=== PATIENT | female | born 1960 | race Caucasian/White ===

== ENCOUNTER → 2019-12-10 18:09 | Outpatient (BNVA) | payer BC, SELFPAY | PROVIDERS: Family Provider Nurse Practitioner; PCP Nurse Practitioner; Visit Provider Nurse Practitioner | DX: R39.9 Unspecified symptoms and signs involving the genitourinary system (principal) | CPT/HCPCS: 81000 ==

== ENCOUNTER 2019-12-16 15:28 | Outpatient (CLI) | payer BC, SELFPAY ==
--- NOTE | 2019-12-16 15:30 | MM_ITS ---
WS: [id number] SCREENING DIGITAL MAMMOGRAM WITH CAD HISTORY: screening mammogram COMPARISON: 05/05/2015, 08/26/2018, 04/25/2017 Bilateral CC and MLO views submitted. Computer aided detection analyzed. Breast composition: The breasts are heterogeneously dense, which may obscure small masses. There are multiple new bilateral high density masses within each breast. Some these are lobulated and some cyril ins are obscured. Largest in the RIGHT breast at 12:00 measures 11 mm. Largest in the LEFT breast at 2:00 measures 15 mm. There is an additional partially obscured mass below the nipple line on the RIGH T MLO. Additional slightly lobulated mass on the LEFT CC and the posterior central breast. MM/[place] [id number] IMPRESSION: BI-RADS: 0-Incomplete: Need additional imaging evaluation FOLLOW UP: Need Additional Imaging Multiple new masses in each breast need further evaluation. Due to the [facility] these are probably cysts. Additional compression views of each breast along with ultrasound will need to be performed to exclude solid masses.
== END 2019-12-16 15:29 | disposition home or self-care (01) ==
LOC: RADSHAW 15:33
PROVIDERS: PCP Family Medicine; Visit Provider Family Medicine
DX: Z12.31 Encounter for screening mammogram for malignant neoplasm of breast (principal); N63.10 Unspecified lump in the right breast, unspecified quadrant; N63.20 Unspecified lump in the left breast, unspecified quadrant
CPT/HCPCS: 77067

== ENCOUNTER → 2019-12-28 14:37 | Outpatient (BNVA) | payer BC, SELFPAY | PROVIDERS: PCP Family Medicine; Visit Provider Nurse Practitioner Family | DX: Z11.59 Encounter for screening for other viral diseases (principal) | CPT/HCPCS: 87635 ==

== ENCOUNTER → 2020-01-10 15:53 | Outpatient (BNVA) | payer BC, SELFPAY | PROVIDERS: PCP Family Medicine; Visit Provider Nurse Practitioner Family | DX: R39.9 Unspecified symptoms and signs involving the genitourinary system (principal) | CPT/HCPCS: 81000 ==

== ENCOUNTER 2020-01-13 11:46 | Outpatient (CLI) | payer BC, SELFPAY ==
--- NOTE | 2020-01-13 12:00 | MM_ITS ---
WS: [id number] DIAGNOSTIC BILATERAL DIGITAL MAMMOGRAM WITH CAD Bilateral breast ultrasound, complete. HISTORY: abnormal mammogram COMPARISON: 12/16/2019, 08/26/2018, 04/25/2017 TECHNIQUE: Bilateral craniocaudad, mediolateral oblique, and mediolateral views are submitted. Spot c ompression CC and MLO views bilaterally. Computer aided detection utilized. Breast composition: The breasts are heterogeneously dense, which may obscure small masses. There are numerous bilateral round mass is of increased density. Margins are partially obscured due to overlapp ing nature. These are predominantly in the upper outer quadrants but also extends across midline and into the inferior breast. Bilateral breast ultrasound, complete. There are numerous cystic masses bilaterally within each breast. There are no solid masses or areas o f architectural distortion or shadowing. Largest cyst in the LEFT breast is at 3:00, 2 cm from the ni pple measuring 1.4 x 1.0 x 1.4 cm. The largest cyst in the RIGHT breast is at 12:00 1 cm from the nip ple measuring 1.2 x 1.1 x 1.5 cm. MM/[place] [id number] IMPRESSION: BI-RADS: 2-Benign FOLLOW UP: 1 Year Follow-up Multiple bilateral breast masses correspond to cysts of various sizes.
--- NOTE | 2020-01-13 12:45 | US_ITS ---
WS: [id number] DIAGNOSTIC BILATERAL DIGITAL MAMMOGRAM WITH CAD Bilateral breast ultrasound, complete. HISTORY: abnormal mammogram COMPARISON: 12/16/2019, 08/26/2018, 04/25/2017 TECHNIQUE: Bilateral craniocaudad, mediolateral oblique, and mediolateral views are submitted. Spot c ompression CC and MLO views bilaterally. Computer aided detection utilized. Breast composition: The breasts are heterogeneously dense, which may obscure small masses. There are numerous bilateral round mass is of increased density. Margins are partially obscured due to overlapp ing nature. These are predominantly in the upper outer quadrants but also extends across midline and into the inferior breast. Bilateral breast ultrasound, complete. There are numerous cystic masses bilaterally within each breast. There are no solid masses or areas o f architectural distortion or shadowing. Largest cyst in the LEFT breast is at 3:00, 2 cm from the ni pple measuring 1.4 x 1.0 x 1.4 cm. The largest cyst in the RIGHT breast is at 12:00 1 cm from the nip ple measuring 1.2 x 1.1 x 1.5 cm. US/US breast BI limited* [id number] IMPRESSION: BI-RADS: 2-Benign FOLLOW UP: 1 Year Follow-up Multiple bilateral breast masses correspond to cysts of various sizes.
== END 2020-01-13 11:47 | disposition home or self-care (01) ==
LOC: RADSHAW 11:50
PROVIDERS: PCP Family Medicine; Visit Provider Family Medicine
DX: R92.8 Other abnormal and inconclusive findings on diagnostic imaging of breast (principal); N63.10 Unspecified lump in the right breast, unspecified quadrant; N63.20 Unspecified lump in the left breast, unspecified quadrant
CPT/HCPCS: 76642; 77066

== ENCOUNTER → 2020-06-10 06:59 | Outpatient (BNVA) | payer BC, SELFPAY | PROVIDERS: PCP Family Medicine; Visit Provider Family Medicine | DX: F41.9 Anxiety disorder, unspecified (principal); N39.0 Urinary tract infection, site not specified; Z13.6 Encounter for screening for cardiovascular disorders; Z79.899 Other long term (current) drug therapy | CPT/HCPCS: 80053; 80061; 85025 ==

== ENCOUNTER → 2020-09-19 12:19 | Outpatient (BNVA) | payer BC, SELFPAY | PROVIDERS: PCP Family Medicine; Visit Provider Nurse Practitioner | DX: Z20.822 Contact with and (suspected) exposure to COVID-19 (principal) | CPT/HCPCS: 87635 ==

== ENCOUNTER 2020-12-05 13:09 | Outpatient (CLI) | payer BC, SELFPAY ==
--- NOTE | 2020-12-05 13:14 | XR_ITS ---
WS: [id number] ABDOMEN 1 VIEW(S) HISTORY: suprapubic pain COMPARISON: None available. Moderate fecal retention within the colon. No obstructive pattern. No suspicious calcifications or masses. No bone abnormality. XR/XR KUB [id number] IMPRESSION: Mild constipation.
== END 2020-12-05 13:10 | disposition home or self-care (01) ==
PROVIDERS: PCP Family Medicine; Visit Provider Family Medicine
DX: R10.2 Pelvic and perineal pain (principal); K59.00 Constipation, unspecified
CPT/HCPCS: 74018; 81000

== ENCOUNTER → 2021-02-07 14:12 | Outpatient (BNVA) | payer BC, SELFPAY | PROVIDERS: PCP Family Medicine; Visit Provider Nurse Practitioner Women's Health | DX: R10.2 Pelvic and perineal pain (principal) | CPT/HCPCS: 87086 ==

== ENCOUNTER → 2021-02-16 13:30 | Outpatient (BNVA) | payer BC, SELFPAY | PROVIDERS: PCP Family Medicine; Visit Provider Nurse Practitioner Women's Health | DX: R10.31 Right lower quadrant pain (principal) | CPT/HCPCS: 76830 ==

== ENCOUNTER → 2021-05-12 08:24 | Outpatient (BNVA) | payer BC, SELFPAY | PROVIDERS: PCP Family Medicine; Visit Provider Obstetrics & Gynecology | DX: Z20.822 Contact with and (suspected) exposure to COVID-19 (principal) | CPT/HCPCS: 87635 ==

== ENCOUNTER 2021-05-15 11:51 | Outpatient (CLI) | payer BC, SELFPAY ==
--- NOTE | 2021-05-15 12:00 | MM_ITS ---
WS: [id number] BILATERAL SCREENING DIGITAL MAMMOGRAM WITH CAD HISTORY: Z12.39 - Encounter for other screening for malignant radha... COMPARISON: 12/16/2019, 08/26/2018, 04/25/2017 and 05/05/2015 Bilateral CC and MLO views submitted. Computer aided detection analyzed. Breast composition: The breasts are heterogeneously dense, which may obscure small masses. No suspici ous masses, microcalcifications or architectural distortion. Patient has bilateral asymmetries and lo bulated masses. These have been present on prior studies and noted to be cystic masses on ultrasound. In the 11:00 region of the LEFT breast is a lobulated mass measuring 10 x 9 mm which is noted to be a cyst on prior imaging studies. MM/[place] [id number] IMPRESSION: BI-RADS: 2-Benign FOLLOW UP: 1 Year Follow-up
== END 2021-05-15 11:52 | disposition home or self-care (01) ==
PROVIDERS: PCP Family Medicine; Visit Provider Nurse Practitioner Women's Health
DX: Z12.31 Encounter for screening mammogram for malignant neoplasm of breast (principal); Z01.818 Encounter for other preprocedural examination
CPT/HCPCS: 77067; 80053; 85025

== ENCOUNTER 2021-05-18 08:30 | Day surgery (SDC) | payer BC, SELFPAY ==
[2021-05-17 09:57] VITALS: BMI 25.4
[2021-05-18] VITALS (9 sets, daily range): BP systolic 109–134; BP diastolic 57–88; PULSE 60–81; RESP 10–21; TEMP 36.1–37.4; O2SAT 95–100
[2021-05-18] MEDS: sodium chloride 0.9% 1,000 ML 30 ML IV (09:27)
--- NOTE | 2021-05-18 09:31 | P.HPUD_ITS ---
Surgery/Procedure H&P Update DATE OF PROCEDURE: May 18, 2021 DATE H&P PERFORMED: 05/01/21 H&P UPDATE INFORMATION: I have reviewed H&P completed within last 30 days, I have examined patient prior to procedure, No changes to prior documentation and H&P is in [facility] EMR on date indicated PREOP DIAGNOSIS: Thickened endometrium, stenotic cervix PLANNED PROCEDURE: Operation Date: 05/18/21 09:55 Proposed Procedures p Hysteroscopy/10575/[id number]/13447/N88.2(Not Applicable) - Lea Olvera MD s Dilation And Curettage (D&C)(Not Applicable) - Lea Olvera MD
--- NOTE | 2021-05-18 09:32 | ANES.PREANE2 ---
Pre-Anesthetic Assessment Height/Weight: Height 1.68 m Weight 71.668 kg Temp Pulse Resp BP Pulse Ox 99.3 F 81 18 134/77 99 05/18/21 08:47 05/18/21 08:47 05/18/21 08:47 05/18/21 08:47 05/18/21 08:47 Preop Diagnosis: Thickened endometrium, stenotic cervix Operation Date: 05/18/21 09:55 Proposed Procedures p Hysteroscopy/[id number]/[id number]/41255/N88.2(Not Applicable) - Lea Olvera MD s Dilation And Curettage (D&C)(Not Applicable) - Lea Olvera MD Familial anesthetic complications: none Was Beta Deepika taken within 24 hours: N/A Was Clonidine taken within 24 hours: N/A Last intake: Intake Last Liquid Date 05/17/21 Last Liquid Time 22:00 Last Solid Date 05/17/21 Last Solid Time 22:00 Social No alcohol and No tobacco Exam alert, oriented x 3, clear to auscultation bilaterally and regular rate & rhythm Airway Mallampati: Class II Dentition: chipped Pulmonary Asthma (ocassional use of inhaler) Anesthetic Plan ASA status: 2 Anesthesia: General Risk of > 500 ml blood loss (7ml/kg in children): No Medications/Allergies Home Medications Medication Instructions Recorded Confirmed Last Taken Type fexofenadine 180 mg tablet 180 mg PO QDAY 04/17/19 05/17/21 Unknown History ([facility] [facility]) estradiol 0.5 mg tablet 0.5 mg PO QDAY #30 tab 02/07/21 05/17/21 05/16/21 Rx medroxyprogesterone 2.5 mg tablet 2.5 mg PO DAILY #30 tab 02/07/21 05/17/21 05/16/21 Rx (Provera) cetirizine 10 mg capsule (Zyrtec) 10 mg PO DAILY 05/01/21 05/17/21 05/17/21 History bupropion HCl 300 mg 24 hr tablet, 300 mg PO QAM #90 tab 05/15/21 05/17/21 05/17/21 20:00 Rx extended release Allergies Allergy/AdvReac Type Severity Reaction Status Date / Time No Known Allergies Allergy Verified 05/15/21 14:50 Current Medications Generic Name Dose Route Start Last Admin Trade Name Freq PRN Reason Stop Dose Admin Sodium Chloride 1,000 mls @ 30 mls/hr 05/18/21 08:45 05/18/21 09:27 Sodium Chloride 0.9% IV 05/19/21 08:44 30 mls/hr .Q24H SASCHA Administration PFSH Anesthesia Medical History (Updated 05/15/21 @ 15:13 by Corinna Nicole DO) Anxiety Diagnosed in her 40s and has been on medication managed by her primary care provider. History of COVID-19 2019 and Mar 2021 No pertinent past medical history Denies diabetes, asthma, hypertension, seizures, DVT/PE PCP: Dr. Nicole Surgical History History of neck surgery At the age of 38 for herniated disc Hx of cataract surgery (~01/2021) Left eye-January 2021 Right eye-February 2021 Hx of tonsillectomy At the age of 6 or 7 Family History Mother Diabetes Family/Other Diabetes Maternal Aunt/Maternal Uncle Father Hypertension Sister Thyroid disease Denies family history of Colon cancer Ovarian cancer Heart disease Hypercholesteremia Breast cancer Uterine cancer Stroke Social History Smoking and tobacco status: never smoked Data Anesthesia : 05/18/21 09:18 Cardiac Studies: No Data to Display
[2021-05-18 09:36] LABS: Basophils # 0.1 10^3/uL (0.0-0.1); Basophils % 0.8 %; Eosinophils # 0.1 10^3/uL (0.0-0.8); Eosinophils % 1.3 %; Hematocrit 43.3 % (37.0-47.0); Hemoglobin 14.4 g/dL (11.5-15.3); Lymphocytes # 2.1 10^3/uL (0.8-4.8); Lymphocytes % 33.9 %; Mean Corpuscular HGB Conc 33.3 g/dL (30.0-36.0); Mean Corpuscular Hemoglobin 30.3 pg (28.0-34.0); Mean Corpuscular Volume 91.2 fl (81-99); Mean Platelet Volume 11.7 fL (7.4-10.4); Monocytes # 0.5 10^3/uL (0.2-0.9); Monocytes % 8.9 %; Neutrophils # 3.31 10^3/uL (1.8-7.7); Neutrophils % 54.8 %; Nucleated Red Blood Cells % 0 %; Platelet Count 229 10^3/cmm (130-400); Red Blood Count 4.75 10^6/uL (4.1-5.3); Red Cell Distribution Width 12.1 % (12.1-15.1); White Blood Count 6.1 10^3/uL (4.0-10.0)
--- NOTE | 2021-05-18 10:40 | US_ITS ---
WS: [id number] Limited pelvic ultrasound. HISTORY: Intraoperative imaging during D&C. On a few images are submitted. The quality and detail is limited. Real-time observation was provided for Dr. Danielson. US/ pelvic limited [id number] IMPRESSION: Real-time imaging in the OR provided for Dr. Danielson by ultrasound.
[2021-05-18] MEDS: silver nitrate applicator 3 EACH TOPICAL (10:43)
--- NOTE | 2021-05-18 10:47 | PM.OP ---
Operative Report Date of procedure: May 18, 2021 OPERATIVE REPORT Date of surgery: 05/18/2021 Date of dictation: 05/18/2021 Preoperative diagnosis: Thickened endometrium on hormone replacement therapy, stenotic cervix Postoperative diagnosis/findings: Shortened atrophic stenotic cervix, 8-week size anteverted uterus, no adnexal masses. On hysteroscopy normal endocervical and endometrial cavity and bilateral ostia visualized. Endometrium appeared thin and atrophic. Fluid deficit 50 mL Procedure done: Ultrasound guided cervical dilation and curettage with hysteroscopy Specimens removed/disposition of specimens: Endometrial curettings sent to pathology Surgeon: Dr. Lea Danielson Sql Programmer Analyst: Asiya Anesthesia: Laryngeal mask anesthesia Estimated blood loss: 25 ml Intravenous fluids: 600 ml of LR Urine output: None Medications: As per anesthesia records Complications: None, patient was taken to the recovery room in a stable condition after anesthesia was reversed. PROCEDURE: After consent was obtained patient was taken to the operating room where she is placed under laryngeal mask anesthesia without any difficulty. She was placed supine on the table in lithotomy position. Care was taken to ensure that her legs were well positioned to avoid pressure points. She was then prepped and draped in the usual sterile fashion. Exam under anesthesia was done at this time which showed findings noted above. The weighted speculum and lateral vaginal wall retractors were placed in the vagina and the cervix was visualized. The cervix appears shortened and definitely had a stenotic os. Tenaculum was placed on the anterior lip of the cervix and the ultrasound probe was placed suprapubically. The cervix was visualized. Using lacrimal dilators the cervix was dilated under ultrasound guidance and no resistance was noted. Once this was done the cervix was serially dilated to a 15 Baltazar dilator. This allowed placement of a 3 mm hysteroscope into the uterine cavity without any difficulty. Once the hysteroscope was placed in the uterine cavity, the endocervical canal was visualized and appeared normal-findings noted as above. Ultrasound guidance was stopped at this time. The hysteroscope was withdrawn and sharp curetting was done. Endometrial curettings were sent to pathology in . No active bleeding was noted from the cervix.Tenaculum was removed and hemostasis was achieved the tenaculum site with silver nitrate. Good hemostasis was achieved. All instruments were removed from the vagina. Patient was cleaned well and anesthesia was reversed without any difficulty. She was taken to the recovery in a stable condition. FOLLOW UP: Follow-up in 2 weeks and 6 weeks with surgeon MEDICATION ON DISCHARGE: Colace 100 mg by mouth every 12 hours when necessary constipation, 30 tablets, no refills Ibuprofen 800 mg by mouth every 8 hours when necessary pain, 30 tablets Continue other home medication DISPOSITION: Home in a stable condition This documentation was created by [employer] skein winding operator software (known for inherent skein winding operator error). Every effort was made to assure accuracy of skein winding operator. Any obvious errors or omissions should be clarified with the author of the document. Pre-op diagnosis: Preop Diagnosis Thickened endometrium, stenotic cervix
--- NOTE | 2021-05-18 19:20 | ANE.PACU2 ---
Inpatient post-anesthesia follow up: Airway intact: Yes Vital signs: Temperature 97.3 F Pulse Rate 75 Respiratory Rate 16 Blood Pressure 119/77 Pulse Oximetry 98 Oxygen Delivery Me thod Room Air Oxygen Flow Rate 8 Fraction of Inspir ed Oxygen Hydration adequate: Yes Nausea and vomiting: Yes Pain level: 1 Mental status: Baseline
== END 2021-05-18 11:49 | disposition home or self-care (01) ==
PROVIDERS: PCP Family Medicine; Visit Provider Obstetrics & Gynecology
PROC: 0UJD8ZZ Inspection of Uterus and Cervix, Via Natural or Artificial Opening Endoscopic (ICD-10-PCS; CPT 58555; principal; 2021-05-18 09:45)
PROC: (CPT 58120; 2021-05-18 09:45)
DX: R93.89 Abnormal findings on diagnostic imaging of other specified body structures (principal); Z79.890 Hormone replacement therapy; N88.2 Stricture and stenosis of cervix uteri; J45.909 Unspecified asthma, uncomplicated; F41.9 Anxiety disorder, unspecified; Z86.16 Personal history of COVID-19; Z82.49 Family history of ischemic heart disease and other diseases of the circulatory system; Z83.3 Family history of diabetes mellitus
CPT/HCPCS: 58558; 76857; 85025; 86850; 86900; 88305; J1100; J1200; J2250; J2405; J2704; J3010; J7030

== ENCOUNTER 2021-11-21 14:37 | Outpatient (CLI) | payer BC, SELFPAY ==
--- NOTE | 2021-11-21 14:51 | XRR_ITS ---
PROCEDURE INFORMATION: Exam: XR Lumbosacral Spine Exam date and time: 11/21/2021 3:15 PM Age: 61 years old Clinical indication: Low back pain; Patient HX: Low back and RT side pain transient x 1 year. Physician said they could feel a protrusion on the RT side of spine. No known injury; Additional info: Chronic low back pain TECHNIQUE: Imaging protocol: Radiologic exam of the lumbosacral spine. Views: 2 or 3 views. COMPARISON: [place] [id number] 01/13/2020 12:15 PM FINDINGS: Bones/joints: No acute fracture or subluxation. Minimal multilevel vertebral endplate spurring is noted. Well maintained disc spaces otherwise. [id number] facet arthropathy from L3 through S1. Soft tissues: Unremarkable. XR/XR lumbar spine 2-3V* [id number] IMPRESSION: No acute findings. Follow-up/additional assessment of any palpable complaint should be based on clinical grounds.
--- NOTE | 2021-11-21 14:51 | XRR_ITS ---
PROCEDURE INFORMATION: Exam: XR Sacrum and Coccyx, 2 or More Views Exam date and time: 11/21/2021 3:15 PM Age: 61 years old Clinical indication: Pain in coccyx area and other: Low back pain; Patient HX: Low back and RT side pain transient x 1 year. Physician said they could feel a protrusion on the RT side of spine. No known injury; Additional info: Chronic low back pain TECHNIQUE: Imaging protocol: XR of the sacrum and coccyx, 2 or more views. COMPARISON: CR XR KUB [id number] 12/05/2020 1:21 PM FINDINGS: Bones/joints: Three views submitted. The sacrum/coccyx are suboptimally assessed and obscured by bowel content on the frontal views. Otherwise no acute fracture dislocation or large suspicious bony lesions. Minimal vertebral endplate spurring is noted. Soft tissues: No soft tissue calcifications/air or soft tissue mass. XR/XR sacrum coccyx min 2V [id number] IMPRESSION: No acute finding. Follow-up/additional assessment of any palpable complaint should be based on clinical grounds.
== END 2021-11-21 14:38 | disposition home or self-care (01) ==
PROVIDERS: PCP Family Medicine; Visit Provider Family Medicine
DX: M54.50 Low back pain, unspecified (principal); G89.29 Other chronic pain; M53.3 Sacrococcygeal disorders, not elsewhere classified
CPT/HCPCS: 72100; 72220

== ENCOUNTER → 2022-02-13 15:21 | Outpatient (BNVA) | payer BC, SELFPAY | PROVIDERS: PCP Family Medicine; Visit Provider Nurse Practitioner Women's Health | DX: Z01.419 Encounter for gynecological examination (general) (routine) without abnormal findings (principal) | CPT/HCPCS: 87624 ==

== ENCOUNTER 2022-05-18 11:03 | Outpatient (CLI) | payer BC, SELFPAY ==
--- NOTE | 2022-05-18 11:11 | MM_ITS ---
WS: [id number] SCREENING DIGITAL BREAST TOMOSYNTHESIS MAMMOGRAM WITH CAD HISTORY: Screening exam. COMPARISON: 08/26/2018, 12/16/2019, 05/15/2021. Bilateral CC and MLO with tomosynthesis and synthetic mammography submitted. Computer aided detection analyzed. Breast composition: The breasts are heterogeneously dense, which may obscure small masses. There is a lobulated mass in the posterior central LEFT breast. This mass has been present on prior studies and ultrasound revealed this is a cyst. The mass appears slightly more lobulated larger today. Additiona l ultrasound should be performed to exclude an adjacent soft tissue mass or increase in size of the c yst. Mass measures 12 x 11 mm. The remaining masses asymmetry bilaterally are stable. MM/[place] [id number] IMPRESSION: BI-RADS: 0-Incomplete: Need additional imaging evaluation FOLLOW UP: Need Additional Imaging Recommendation: Ultrasound evaluation of the lobulated mass in the central post erior LEFT breast measuring 12 x 11 mm. Mass is just medial to the nipple line and probably just above or at the nipple line. This mass has been previously im aged by ultrasound but appears larger in size.
== END 2022-05-18 11:04 | disposition home or self-care (01) ==
LOC: RAD 11:06
PROVIDERS: PCP Family Medicine; Visit Provider Nurse Practitioner Women's Health
DX: Z12.31 Encounter for screening mammogram for malignant neoplasm of breast (principal)
CPT/HCPCS: 77063; 77067

== ENCOUNTER 2022-05-22 10:17 | Outpatient (CLI) | payer BC, SELFPAY ==
--- NOTE | 2022-05-22 11:09 | XRR_ITS ---
PROCEDURE INFORMATION: Exam: XR Cervical Spine Exam date and time: 05/22/2022 11:14 AM Age: 61 years old Clinical indication: Prior surgery; Surgery date: 6+ months; Surgery type: C spine 22 years ago; Patient HX: Neck pain that radiates around left shoulder. 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 Views: 2 or 3 views. COMPARISON: CR XR chest 1V [id number] 01/27/2017 4:41 PM FINDINGS: Bones/joints: There is mild upper cervical kyphosis. There is trace retrolisthesis of C4 on C5. There is anterior fusion hardware at C5-C6. There is lucency throughout the anterior aspect of these vertebral bodies and surrounding the screws. There is solid osseous interbody fusion C5-C6. There is severe disc narrowing and vertebral spondylosis at C4-C5. There is moderate disc narrowing and vertebral spondylosis at C2-C3 and C6-C7. No acute fracture. Soft tissues: Visible soft tissues are unremarkable. XR/XR cervical spine 3V* [id number] IMPRESSION: 1. Anterior fusion hardware at C5-C6 with lucency in the anterior vertebral bodies and surrounding the fixation screws. Findings are consistent with loosening. Infection cannot be excluded. If there is clinical evidence of infection, consider MRI. 2. Cervical disc degeneration as above.
== END 2022-05-22 10:18 | disposition home or self-care (01) ==
LOC: RAD 10:20
PROVIDERS: PCP Family Medicine; Visit Provider Family Medicine
DX: M47.892 Other spondylosis, cervical region (principal); M54.2 Cervicalgia; Z98.1 Arthrodesis status
CPT/HCPCS: 72040

== ENCOUNTER 2022-06-14 10:34 | Outpatient (CLI) | payer BC, SELFPAY ==
--- NOTE | 2022-06-14 10:42 | US_ITS ---
WS: [id number] ULTRASOUND LEFT BREAST HISTORY: ABNORMAL MAMMO COMPARISON: Mammogram 05/18/2022 and prior ultrasound 01/13/2020. TECHNIQUE: 2-D and Doppler. Ovoid mass at 10:00 near the areolar measures 10 x 11 x 5 mm. This corresponds in size and location t o the mammographic abnormality. This is a simple cyst which is decreased in size as compared to prior ultrasound. There are additional smaller cysts and a similar location as seen before. US/US breast LT limited* [id number] IMPRESSION: BI-RADS: 2-Benign FOLLOW-UP: 1 Year Follow-up Return to annual mammographic evaluation.
== END 2022-06-14 10:35 | disposition home or self-care (01) ==
LOC: RAD 10:36
PROVIDERS: PCP Family Medicine; Visit Provider Nurse Practitioner Women's Health
DX: R92.8 Other abnormal and inconclusive findings on diagnostic imaging of breast (principal)
CPT/HCPCS: 76642

== ENCOUNTER 2022-06-21 07:14 | Outpatient (CLI) | payer BC, SELFPAY ==
--- NOTE | 2022-06-21 07:23 | MR_ITS ---
WS: [id number] MRI CERVICAL SPINE NONCONTRAST TECHNIQUE: Sagittal T1, T2 and STIR imaging. Axial T2, gradient, and fiesta imaging. CLINICAL INFORMATION: ACUTE NECK PAIN/HARDWARE LOOSENING COMPARISON: None. FINDINGS: Straightening of the normal cervical lordosis. Prior postoperative changes anterior cervical fusion C 5-C6. Slight retrolisthesis C4 on C5. Mild disc bulging with small disc protrusions at C3-C4 C4-C5 an d C6-C7. C2-C3: Mild LEFT facet arthropathy. Mild LEFT and no significant RIGHT foraminal narrowing. Spinal ca nal is patent. C3-C4: LEFT eccentric disc osteophyte complex. Disc material appears to extend into the LEFT C3-C4 fo ramen. Slight contact of the LEFT ventral cervical cord. Moderate to severe LEFT foraminal narrowing. Mild facet arthropathy. Recommend correlation for LEFT C4 nerve root symptoms. C4-C5: Slight retrolisthesis. Disc osteophyte ridging with mild central canal stenosis. Slight contac t of the cervical cord. Moderate bilateral bony foraminal narrowing. Moderate facet arthropathy. C5-C6: Prior postoperative changes anterior fusion. Spinal canal and foramen are patent. Mild facet a rthropathy. C6-C7: Shallow central disc protrusion with indentation and contact of the cervical cord. Mild centra l canal stenosis. Mild facet arthropathy. Mild to moderate RIGHT and mild LEFT bony foraminal narrowi ng. C7-T1: No significant disc bulging. Mild facet arthropathy. Spinal canal and foramen are patent. Visualized upper thoracic canal is patent. Tiny LEFT pericentral protrusion at T3-T4. Visualized brain stem structures: Normal. Prevertebral soft tissues: Normal. Mucosal thickening partially visualized in the sphenoid sinus. Partial opacification the sphenoid sin us. MR/MR cervical spin wo con* [id number] IMPRESSION: 1. Straightening with slight reversal normal cervical lordosis. Prior postoper ative changes ACDF C5-C6. 2. Suggestion of a LEFT proximal foraminal protrusion C3-C4 with impingement o n the exiting LEFT C4 nerve root.Correlation LEFT C4 nerve root symptoms 3. Slight retrolisthesis C4 on C5 with mild central canal stenosis and slight contact of the cervical cord. 4. Shallow central protrusion C6-C7 with mild central canal stenosis. 5. Moderate bilateral bony foraminal narrowing C4-C5 with moderate facet arthr opathy. 6. Mild to moderate RIGHT C6-C7 bony foraminal narrowing.
== END 2022-06-21 07:15 | disposition home or self-care (01) ==
LOC: RAD 07:16
PROVIDERS: PCP Family Medicine; Visit Provider Family Medicine
DX: M50.223 Other cervical disc displacement at C6-C7 level (principal); M48.02 Spinal stenosis, cervical region; M47.812 Spondylosis without myelopathy or radiculopathy, cervical region
CPT/HCPCS: 72141

== ENCOUNTER 2022-09-04 13:23 | Outpatient (RCR) | payer BC, SELFPAY | END 2022-09-14 23:59 | disposition home or self-care (01) | LOC: SPT 13:23 | PROVIDERS: PCP Family Medicine; Visit Provider Neurological Surgery | DX: M50.30 Other cervical disc degeneration, unspecified cervical region (principal) | CPT/HCPCS: 97110; 97161 ==

== ENCOUNTER 2022-09-15 06:00 | Outpatient (RCR) | payer BC, SELFPAY | END 2022-10-15 23:59 | disposition home or self-care (01) | LOC: SPT 06:00 | PROVIDERS: PCP Family Medicine; Visit Provider Neurological Surgery | DX: M50.30 Other cervical disc degeneration, unspecified cervical region (principal) | CPT/HCPCS: 97110 ==

== ENCOUNTER 2022-10-16 06:00 | Outpatient (RCR) | payer BC, SELFPAY | END 2022-11-15 23:59 | disposition home or self-care (01) | LOC: SPT 06:00 | PROVIDERS: PCP Family Medicine; Visit Provider Neurological Surgery | DX: M50.30 Other cervical disc degeneration, unspecified cervical region (principal) | CPT/HCPCS: 97110 ==

== ENCOUNTER → 2022-12-12 08:24 | Outpatient (BNVA) | payer BC, SELFPAY | PROVIDERS: PCP Family Medicine; Visit Provider Family Medicine | DX: Z13.6 Encounter for screening for cardiovascular disorders (principal) | CPT/HCPCS: 80053; 80061; 84443; 85025 ==

== ENCOUNTER 2022-12-21 13:25 | Outpatient (CLI) | payer BC, SELFPAY ==
--- NOTE | 2022-12-21 13:30 | XR_ITS ---
WS: [id number] DEXA (DUAL ENERGY X-RAY ABSORPTIOMETRY) Bone mineral density was performed using a Fon machine. HISTORY: postmenopausal COMPARISON: None available. Lumbar spine BMD (L1-L4): 1.182 g/cm2 T score: 0.0 Z score: 1.3 Total hip BMD: Left: 0.904 g/cm2. T score: -0.8 Z score: 0.1 Right: 0.915 g/cm2. T score: -0.7 Z score: 0.2 10 year probability of a major osteoporotic fracture is 8.4%. IMPRESSION: Normal bone mineral density Based upon the WHO classification for females.
== END 2022-12-21 13:26 | disposition home or self-care (01) ==
PROVIDERS: PCP Family Medicine; Visit Provider Family Medicine
DX: Z78.0 Asymptomatic menopausal state (principal)
CPT/HCPCS: 77080

== ENCOUNTER 2023-01-22 08:56 | Day surgery (SDC) | payer BC, SELFPAY ==
--- NOTE | 2023-01-22 06:42 | W.PM.OPSUD ---
Surgery/Procedure H&P Update DATE OF PROCEDURE: January 22, 2023 DATE H&P PERFORMED: 01/14/23 H&P UPDATE INFORMATION: I have reviewed H&P completed within last 30 days, I have examined patient prior to procedure, No changes to prior documentation and H&P is in [facility] [place] EMR on date indicated PLANNED PROCEDURE: Operation Date: 01/22/23 09:55 Proposed Procedures p Colonoscopy g0121,z12.11(Not Applicable) - Jacobo Bruno MD
[2023-01-22 09:10] VITALS: BMI 23.3
[2023-01-22 09:11] VITALS: BP 110/88; PULSE 79; RESP 17; TEMP 36.8; O2SAT 99
[2023-01-22] MEDS: sodium chloride 0.9% 1,000 ML 30 ML IV (09:18)
--- NOTE | 2023-01-22 09:36 | P.ANESASSM_ITS ---
Pre-Anesthetic Assessment Height/Weight: Height 1.68 m Weight 65.771 kg Temp Pulse Resp BP Pulse Ox O2 Del Method 98.3 F 79 17 110/88 99 Room Air 01/22/23 09:11 01/22/23 09:11 01/22/23 09:11 01/22/23 09:11 01/22/23 09:11 01/22/23 09:11 Operation Date: 01/22/23 09:55 Proposed Procedures p Colonoscopy [id number](Not Applicable) - Jacobo Bruno MD Familial anesthetic complications: none Was Beta Deepika taken within 24 hours: N/A Was Clonidine taken within 24 hours: N/A Last intake: Intake Last Liquid Date 01/21/23 Last Liquid Time 22:00 Last Solid Date 01/21/23 Last Solid Time 08:00 Social No alcohol and No tobacco Exam alert and oriented x 3 Airway Submandibular: within normal limits Cervical ROM: within normal limits Mallampati: Class II Dentition: full History/ROS No significant complaints Anesthetic Plan ASA status: 2 Anesthesia: Anesthesia Evaluation, General and MAC Risk of > 500 ml blood loss (7ml/kg in children): No Medications/Allergies Home Medications Medication Instructions Recorded Confirmed Last Taken Type cetirizine 10 mg capsule (Zyrtec) 10 mg PO DAILY 05/01/21 01/22/23 01/21/23 History clotrimazole-betamethasone 1 1 applic topical BID 4 weeks #45 11/21/21 01/22/23 01/21/23 Rx %-0.05 % topical cream grams estradiol 0.5 mg tablet 0.5 mg PO QDAY #90 tabs 02/13/22 01/22/23 01/21/23 Rx medroxyprogesterone 2.5 mg tablet 2.5 mg PO DAILY #90 tabs 02/13/22 01/22/23 01/21/23 Rx (Provera) tizanidine 6 mg capsule 6 mg PO TID PRN muscle spasticity 05/22/22 01/22/23 01/21/23 Rx #60 caps bupropion HCl 150 mg 24 hr tablet, 150 mg PO DAILY 01/18/23 01/22/23 01/21/23 History extended release gabapentin 300 mg capsule 300 mg PO TID PRN nerve pain 01/18/23 01/22/2323 History Allergies Allergy/AdvReac Type Severity Reaction Status Date / Time No Known Allergies Allergy Verified 01/22/23 09:10 Current Medications Generic Name Dose Route Start Last Admin Trade Name Evaristo PRN Reason Stop Dose Admin Sodium Chloride 1,000 mls @ 30 mls/hr 01/22/23 09:15 01/22/23 09:18 Sodium Chloride 0.9% IV 01/23/23 09:14 30 mls/hr .Q24H SASCHA Administration PFSH Anesthesia Medical History Acute strain of neck muscle Anxiety Diagnosed in her 40s and has been on medication managed by her primary care provider. History of COVID-19 2019 and Mar 2021 No pertinent past medical history Denies diabetes, asthma, hypertension, seizures, DVT/PE PCP: Dr. Nicole Strain of muscle, fascia and tendon at neck level, initial encounter Surgical History History of neck surgery At the age of 38 for herniated disc Hx of cataract surgery (~01/2021) Left eye-January 2021 Right eye-February 2021 Hx of tonsillectomy At the age of 6 or 7 Status post hysteroscopy 05/18/2021--hysteroscopy, D&C with ultrasound guidance [place] thickened endometrium and sten[place] cervix [place] [facility] [place] On hysteroscopy normal endometrial cavity and endocervical cavity with thinned out endometrium and bilateral ostia visualized. --- Pathology showed---> rare benign endometrial glands without atypia hyperplasia or malignancy. Family History Mother Diabetes Hypertension Family/Other Diabetes Maternal Aunt/Maternal Uncle Father Hypertension Sister Thyroid disease Denies family history of Colon cancer Ovarian cancer Heart disease Hypercholesteremia Breast cancer Uterine cancer Stroke Social History Smoking and tobacco/nicotine status: never used tobacco/nicotine Substance/Drug Use: never Data Anesthesia Cardiac Studies: No Data to Display
[2023-01-22 10:35] VITALS: BP 108/64; PULSE 69; RESP 16; TEMP 36.3; O2SAT 96
[2023-01-22 10:40] VITALS: BP 109/63; PULSE 62; RESP 16; O2SAT 96
[2023-01-22 10:50] VITALS: BP 126/75; PULSE 57; RESP 18; O2SAT 99
[2023-01-22 11:00] VITALS: BP 134/82; PULSE 59; RESP 18; O2SAT 97
--- NOTE | 2023-01-22 11:08 | ANE.PACU2 ---
Inpatient post-anesthesia follow up: Airway intact: Yes Vital signs: Temperature 97.3 F Pulse Rate 59 Respiratory Rate 18 Blood Pressure 134/82 Pulse Oximetry 97 Oxygen Delivery Me thod Room Air Oxygen Flow Rate Fraction of Inspir ed Oxygen Hydration adequate: Yes Nausea and vomiting: No Pain level: 1 Mental status: Baseline
== END 2023-01-22 11:25 | disposition home or self-care (01) ==
PROVIDERS: PCP Family Medicine; Visit Provider Surgery
PROC: 0DJD8ZZ Inspection of Lower Intestinal Tract, Via Natural or Artificial Opening Endoscopic (ICD-10-PCS; CPT 45378; principal; 2023-01-22 09:55)
DX: Z12.11 Encounter for screening for malignant neoplasm of colon (principal); D12.8 Benign neoplasm of rectum; Z86.16 Personal history of COVID-19
CPT/HCPCS: 45380; 88305; J2704; J7030

== ENCOUNTER → 2023-02-20 11:30 | Outpatient (BNVA) | payer BC, SELFPAY | PROVIDERS: PCP Family Medicine; Visit Provider Nurse Practitioner Women's Health | DX: B35.4 Tinea corporis (principal); R23.2 Flushing; Z01.419 Encounter for gynecological examination (general) (routine) without abnormal findings | CPT/HCPCS: 87624 ==

== ENCOUNTER → 2023-12-31 10:38 | Outpatient (BNVA) | payer BC, SELFPAY | PROVIDERS: PCP Family Medicine; Visit Provider Family Medicine | DX: Z00.00 Encounter for general adult medical examination without abnormal findings (principal) | CPT/HCPCS: 80053; 80061; 84443; 85025 ==

== ENCOUNTER → 2024-01-03 11:18 | Outpatient (BNVA) | payer BC, SELFPAY | PROVIDERS: PCP Family Medicine; Visit Provider Family Medicine | DX: Z00.00 Encounter for general adult medical examination without abnormal findings (principal); R79.89 Other specified abnormal findings of blood chemistry | CPT/HCPCS: 84439; 84481; 85025; 86376 ==

== ENCOUNTER 2024-01-23 10:03 | Outpatient (CLI) | payer BC, SELFPAY ==
--- NOTE | 2024-01-23 10:15 | US_ITS ---
WS: [id number] ULTRASOUND ABDOMEN LIMITED CLINICAL INFORMATION: elevated liver enzymes COMPARISON: None. FINDINGS: Liver Size: Normal. Craniocaudal length: 14.2 cm. Echogenicity: Coarse Surface nodularity: None. Mass (size and location): None. Bile ducts Intrahepatic ducts: Normal. Common bile duct diameter: 0.4 cm. Gallbladder Cholelithiasis Gallstones: Present Gallbladder sludge: None. Gallbladder wall thickening: None. Pericholecystic fluid: None. Sonographic Etienne sign: Absent. Pancreas Not well visualized Right kidney: Normal. Hydronephrosis: None. Size: 9.6 cm x 6.2 cm x 4.7 cm. Abdominal aorta and IVC Visualized portions are normal. Ascites: None. US/US abdomen limited [id number] IMPRESSION: 1. Liver size upper limits of normal with coarse hepatic echogenicity likely d ue to fatty infiltration. Recommend correlation with liver function tests. 2. Dense shadowing cholelithiasis. No gallbladder wall thickening or perichole cystic fluid. 3. Normal common bile duct. 4. No hydronephrosis in the RIGHT kidney.
== END 2024-01-23 10:04 | disposition home or self-care (01) ==
PROVIDERS: PCP Family Medicine; Visit Provider Family Medicine
DX: K76.0 Fatty (change of) liver, not elsewhere classified (principal); R74.8 Abnormal levels of other serum enzymes; K80.20 Calculus of gallbladder without cholecystitis without obstruction
CPT/HCPCS: 76705

== ENCOUNTER → 2024-03-04 12:28 | Outpatient (BNVA) | payer BC, SELFPAY | PROVIDERS: PCP Family Medicine; Visit Provider Nurse Practitioner Women's Health | DX: R23.2 Flushing (principal); Z01.419 Encounter for gynecological examination (general) (routine) without abnormal findings; Z79.890 Hormone replacement therapy | CPT/HCPCS: 82670 ==

== ENCOUNTER 2024-04-03 09:55 | Outpatient (CLI) | payer BC, SELFPAY ==
--- NOTE | 2024-04-03 10:00 | MM_ITS ---
WS: [id number] SCREENING DIGITAL BREAST TOMOSYNTHESIS MAMMOGRAM WITH CAD HISTORY: Z12.31 - Encounter for screening mammogram for malignant ... COMPARISON: 05/18/2022, 05/15/2021 Bilateral CC and MLO with tomosynthesis and synthetic mammography submitted. Computer aided detection analyzed. Breast composition: The breasts are heterogeneously dense, which may obscure small masses. Multiple well-circumscribed high density masses are noted in the upper outer quadrant of the LEFT thad ast. Masses have been described in the LEFT breast but these have increased in size and number since 05/18/2022. Largest mass measures 10 x 12 mm. Focal asymmetry retroareolar in the LEFT breast described on the prior study is no longer present. No suspicious interval change RIGHT breast. MM/MM [facility] tomosynthesis [id number] IMPRESSION: BI-RADS: 0 - Incomplete: Need additional imaging evaluation FOLLOW UP: Need Additional Imaging Recommendation: Ultrasound LEFT breast, upper outer quadrant. There are new mas ses which are probably cysts based upon prior imaging study. As these masses ar e new recommend ultrasound evaluation at this time to ensure there is no solid mass.
== END 2024-04-03 09:56 | disposition home or self-care (01) ==
LOC: RAD 09:57
PROVIDERS: PCP Family Medicine; Visit Provider Nurse Practitioner Women's Health
DX: Z12.31 Encounter for screening mammogram for malignant neoplasm of breast (principal); R92.333 Mammographic heterogeneous density, bilateral breasts; N63.21 Unspecified lump in the left breast, upper outer quadrant
CPT/HCPCS: 77063; 77067

== ENCOUNTER 2024-04-21 13:52 | Outpatient (CLI) | payer BC, SELFPAY ==
--- NOTE | 2024-04-21 14:00 | US_ITS ---
WS: [id number] ULTRASOUND LEFT BREAST HISTORY: Follow-up screening mammogram. COMPARISON: 04/03/2024 mammogram TECHNIQUE: 2-D and Doppler. Mass is seen on the mammogram in the upper outer quadrant correspond to cysts. The largest cyst at 2:00, 1 cm from the nipple measures 1.2 x 1.2 x 0.7 cm. There are several smaller cysts. No solid mass. US/US breast LT limited* [id number] IMPRESSION: BI-RADS: 2- Benign FOLLOW-UP: 1 Year Follow-up Return to annual screening mammography.
== END 2024-04-21 13:53 | disposition home or self-care (01) ==
PROVIDERS: PCP Family Medicine; Visit Provider Nurse Practitioner Women's Health
DX: R92.8 Other abnormal and inconclusive findings on diagnostic imaging of breast (principal); N60.12 Diffuse cystic mastopathy of left breast
CPT/HCPCS: 76642

== ENCOUNTER → 2025-01-15 09:53 | Outpatient (BNVA) | payer BC, SELFPAY | PROVIDERS: PCP Family Medicine; Visit Provider Family Medicine | DX: Z00.00 Encounter for general adult medical examination without abnormal findings (principal) | CPT/HCPCS: 80053; 80061; 84443; 85025 ==